=== PATIENT | female | born 1990 | race Two or more races ===

== ENCOUNTER → 2020-10-05 | Outpatient (CLI) | payer SELFPAY | LOC: M LABSMTC 11:40 | PROVIDERS: ATTEND Pediatrics | DX: Z20.822 Contact with and (suspected) exposure to COVID-19 (principal) ==

== ENCOUNTER → 2023-08-15 | Outpatient (REF) | LOC: M EMP 15:54 | PROVIDERS: ATTEND Family Medicine | DX: Z11.52 Encounter for screening for COVID-19 (principal); Z53.9 Procedure and treatment not carried out, unspecified reason ==